=== PATIENT | female | born 1960 | race Caucasian/White ===

== ENCOUNTER → 2022-10-16 | Outpatient (CLI) | payer OTHER ==
[2022-10-16 16:09] LABS: Microalb/Creat Ratio UR, Rand 21.5 mg/g (0.000-30.000); Microalbumin, Random Urine 30.1 mg/L (0.000-20.000)
== END ==
LOC: LAB 13:03 → LAB SHORT 13:03
PROVIDERS: Family Medicine
DX: I12.9 Hypertensive chronic kidney disease with stage 1 through stage 4 chronic kidney disease, or unspecified chronic kidney disease (principal); E11.22 Type 2 diabetes mellitus with diabetic chronic kidney disease; E66.9 Obesity, unspecified; N18.4 Chronic kidney disease, stage 4 (severe)
CPT/HCPCS: 82043; 82570

== ENCOUNTER 2022-11-23 13:12 | Day surgery (SDC) | payer OTHER ==
[~2022-11-23] VITALS: Ht 162.6 cm; Wt 105.0 kg
[~2022-11-23 13:12] MED LIST: AMLO10 PO; ASPI325 PO; BASAGLAR K100 UNIT/1 SC; EUTHYROX25 MC1 PO; FISH OIL 1,2001 EAC1 PO; FURO20 PO; Garlic500 MG PO; LOSA50 PO; MAGNESIUM250 MG PO; NIAC500 PO; NOVOLOG100 UNIT/2; RA VIT B-12 1,1 EACH; TOCO1000 PO
[2022-11-23] MEDS ORDERED: B-12 COMPL1000 MCG/2 IM (14:05)
[2022-11-23] MEDS ORDERED: TRULICITY0.75 MG/01 (14:07)
[2022-11-23] MEDS ORDERED: FARXIGA10 MG PO (14:10)
[2022-11-23] MEDS ORDERED: FURO20 (14:10)
[2022-11-23] MEDS ORDERED: Norco 5-325 Ta1 EACH PO (14:12)
[2022-11-23 14:25] VITALS: BP 108/81
--- NOTE | 2022-11-23 14:25 | NUR ---
PT NEEDING FULL LIFT ASSIST BY PT BROTHER WELL USE OF OVERHEAD LIFT TO TRANSFER PT TO BED. PTS PRESENTS WITH FAMILY. REPORTS THAT PATIENT HASN'T BEEN ABLE TO TRANSFER SELF WITH OUT "ALOT OF HELP" PER BROTHER SINCE PT FELL YESTERDAY MORNING AND [place] ABOUT 2-1/2 HOURS BEFORE PARAMEDICS ARRIVED AND TRANSFERED PT TO HOSPITAL. PT HAD XRAY AND DISCHARGE HOME WITH FAMILY. PT IS ALERT AND ORIENTED TO MOST THINGS BUT THOUGHT IT WAS 2021. PT LAST PO ABOUT 1700 LAST NIGHT. PT TOOK HER INSULIN PRIOR TO EATING DINNER LAST NIGHT. History, Chart, Medications and Allergies reviewed before start of procedure. Lungs clear T/O to Auscultation. Patient confirms NPO status and agrees with scheduled surgery. Pre-Op teaching done. Pt verbalizes understanding. PT REPORTS THAT SHE HAS VOMITED SEVERAL TIMES YESTERDAY.
--- NOTE | 2022-11-23 15:25 | NUR ---
DR. ANAYA AND DR. BOOTH AT BEDSIDE TO DO BLOCK. PT GIVEN FENTANYL 25MCG BY DR BOOTH. PT BLOOD PRESSURE LOWER 77/54. PT FLUIDS OPENED AND PRESSURE BAG PLACED PER DR. BOOTH AT THIS TIME. PT DENIES DIZZINESS OR OTHER C/O AT THIS TIME.
--- NOTE | 2022-11-23 15:43 | NUR ---
SURGERY HAS BEEN CANCELLED TODAY PER DR. BOOTH AND DR. ANAYA. DR. ANAYA SPOKE WITH DR. AHN THE HOSPITALIST AND WANTS PT TAKEN THROUGH THE ER. REPORT GIVEN TO CONCHITA CHARGE NURSE IN ER. DR. ANAYA RE-SPLINTING R ARM AT THIS TIME. PT GIVEN A TOTAL OF 800CC OF LR. PT ALERT AND ORIENTED. NO CHANGE IN MENTATION.
[2022-11-23 15:44] VITALS: BP 85/49
[2022-11-23 15:55] LABS: Albumin, Blood 2.6 g/dL (3.4-5.0); Albumin/Globulin Ratio 0.6 (0.8-1.8); Bilirubin, Total 0.6 mg/dL (0.1-1.0); Bun/Creatinine Ratio 17.6 (12.0-20.0); Calcium, Blood 9.2 mg/dL (8.5-10.1); Creatinine, Blood 7.38 mg/dL (0.40-1.00); Globulin, Blood 4.6 g/dL (2.2-4.0); Potassium, Blood 4.7 mmol/L (3.5-5.5); Total Protein, Blood 7.2 g/dL (6.4-8.2)
--- NOTE | 2022-11-23 16:12 | NUR ---
PT TRANSFERED TO ER FOR EVAL. DR ANAYA SPOKE WITH HOSPITALIST. DMITRY REID GAVE REPORT TO NINI.
[2022-11-28] MEDS ORDERED: ELIQUIS2.5 MG PO (13:51)
[2022-11-28] MEDS ORDERED: CEFD300 PO (13:51)
[2022-11-28] MEDS ORDERED: TOPROL XL25 MG (13:52)
[2022-11-28] MEDS ORDERED: BASAGLAR K100 UNIT/1 SC (13:53)
[2022-11-28] MEDS ORDERED: ASPIR 8181 M1 PO (13:55)
== END 2022-11-23 23:05 | disposition home or self-care (01) ==
LOC: ORSCMMR 13:12 → ORD 13:12 → ORSCMMR 13:13 → ORD 23:05
PROVIDERS: Anesthesiology
DX: S52.571A Other intraarticular fracture of lower end of right radius, initial encounter for closed fracture (principal); Z53.9 Procedure and treatment not carried out, unspecified reason
CPT/HCPCS: 80053; 82947; J0171; J0690; J0696; J2250; J2405; J2704; J3010; J7120

== ENCOUNTER → 2023-08-18 | Outpatient (CLI) | payer OTHER ==
[~2023-08-18] MED LIST changes: +ASPIR 8181 M1 PO; +B-12 COMPL1000 MCG/2 IM; +CEFD300 PO; +ELIQUIS2.5 MG PO; +FARXIGA10 MG PO; +FURO20; +Norco 5-325 Ta1 EACH PO; +TOPROL XL25 MG; +TRULICITY0.75 MG/01
[2023-08-18 14:40] LABS: Creatinine, Urine Random 39.4 mg/dL (27.00-270.00)
== END | disposition home or self-care (01) ==
LOC: LAB 10:45 → LAB SHORT 10:45
PROVIDERS: Family Medicine
DX: I12.9 Hypertensive chronic kidney disease with stage 1 through stage 4 chronic kidney disease, or unspecified chronic kidney disease (principal); E11.22 Type 2 diabetes mellitus with diabetic chronic kidney disease; N18.4 Chronic kidney disease, stage 4 (severe); E66.9 Obesity, unspecified
CPT/HCPCS: 82043; 82570